=== PATIENT | male | born 1990 | race Caucasian/White ===

== ENCOUNTER 2020-01-01 12:44 | Emergency (ER) | payer OTHER, SELFPAY ==
[2020-01-01 12:49] VITALS: BP 134/81; PULSE 88; RESP 16; TEMP 37.2; O2SAT 99
--- NOTE | 2020-01-01 13:07 | ED.URI ---
HPI - URI/Sore Throat General Chief Complaint: Upper Respiratory Infection Stated Complaint: SORE THROAT Time Seen by Provider: 01/01/20 13:07 Source: patient and RN notes reviewed Mode of arrival: ambulatory Limitations: no limitations History of Present Illness HPI Narrative: 29-year-old male presents with concern for sore throat, body aches, sweats, chills that started yesterday. Denies rhinorrhea, congestion, cough. Reports taking Motrin and Tylenol. MD elicited complaint: sore throat Related Data Allergies Allergy/AdvReac Type Severity Reaction Status Date / Time No Known Allergies Allergy Unknown Other Verified 05/26/18 09:03 Review of Systems Review of Systems: Narrative: CONSTITUTIONAL: Reports malaise, chills, sweats, tactile fever. EYES: Denies visual changes, redness, or discharge. ENT: Denies rhinorrhea, congestion, sinus pain, otalgia. Reports sore throat. CARDIOVASCULAR: Denies chest pain, palpitations, or edema. RESPIRATORY: Denies cough dyspnea. GASTROINTESTINAL: Denies abdominal pain, nausea, vomiting, diarrhea SKIN: Denies rash or itching. MUSCULOSKELETAL: Reports myalgia. NEUROLOGIC: Denies headache. All systems reviewed & are unremarkable except as noted in HPI and below PMFSH Past Medical History Medical History (Updated 01/01/20 @ 13:23 by Tabatha Dobbins NP) Hyperlipidemia Social History Social History Smoking status: Never smoker Alcohol intake: current Comments At time of signature, agree with nursing past medical, surgical, social and family history. There is no relevant family history pertinent to the presenting complaint Exam Narrative: Exam Narrative: GENERAL: Well-appearing, well-nourished, and in no acute distress. HEAD: Normocephalic EYES: PERRLA, conjunctivae clear ENT: Nares clear, turbinates pink, discharge. Mucous membranes moist. TM pearly lerner with sharp light reflex bilaterally; no tragal tenderness. Oropharynx erythematous without lesions. Tonsils enlarged and with purulent exudate, no drooling, no hoarseness, no trismus. NECK: Supple. No lymphadenopathy CHEST: Clear to auscultation, breath sounds equal. No wheezing, rhonchi, rales, or stridor. No respiratory distress, speaks in full sentences. HEART: Regular rate and rhythm. No murmur heard. Normal peripheral pulses. SKIN: Warm, dry, no rash. NEURO: Alert and oriented x3. PSYCH: Normal mood and affect Course Course Emergency Course: Patient is aware of diagnosis, understands and agrees to treatment plan. Anticipatory guidance given. Patient agrees to follow-up as directed and is aware of reasons to seek care at the emergency department. Portions of this record may have been created with voice recognition software Vital Signs Vital signs: Vital Signs Temperature 98.9 F 01/01/20 12:49 Pulse Rate 88 01/01/20 12:49 Respiratory Rate 16 01/01/20 12:49 Blood Pressure 134/81 01/01/20 12:49 Pulse Oximetry 99 01/01/20 12:49 Temperature 98.9 F 01/01/20 12:49 Pulse Rate 88 01/01/20 12:49 Respiratory Rate 16 01/01/20 12:49 Blood Pressure 134/81 01/01/20 12:49 Pulse Oximetry 99 01/01/20 12:49 Reviewed. Pt has been instructed to follow up with his primary care provider within the next week regarding his elevated blood pressure today. MDM - URI/Sore Throat MDM Narrative Medical decision making narrative: Differential diagnosis considered: Strep pharyngitis, allergic rhinitis, upper respiratory tract infection, sinusitis, rhinosinusitis, nasopharyngitis. viral pharyngitis, otitis media, otitis externa, pneumonia, bronchitis, viral cough syndrome, viral syndrome, and influenza. Exam findings show no acute concerns or changes; patient is non-toxic appearing and is in no distress. Patient is appropriate for outpatient treatment and follow-up. Lab Data Attestation: I reviewed the patient's lab results. Labs: Influenza A Screen Negat
== END 2020-01-01 13:28 | disposition home or self-care (01) ==
PROVIDERS: Emergency Provider Nurse Practitioner
DX: J02.0 Streptococcal pharyngitis (principal); E78.5 Hyperlipidemia, unspecified
CPT/HCPCS: 87804; 87880; 99213; G0463

== ENCOUNTER 2020-07-31 00:39 | Outpatient (CLI) | payer OTHER, SELFPAY ==
[2020-07-31 17:08] LABS: SARS-CoV-2 RNA PCR Negative
== END 2020-07-31 00:40 | disposition home or self-care (01) ==
LOC: ANHCOVIDDT 00:39
PROVIDERS: Visit Provider Internal Medicine Gastroenterology
DX: Z01.812 Encounter for preprocedural laboratory examination (principal); Z11.59 Encounter for screening for other viral diseases
CPT/HCPCS: 87635; C9803; U0003

== ENCOUNTER 2020-08-03 00:54 | Day surgery (SDC) | payer OTHER, SELFPAY ==
[2020-07-27 12:19] VITALS: BMI 29.4
[2020-08-03 07:18] VITALS: BP 114/74; PULSE 78; RESP 18; TEMP 36.5; O2SAT 98
--- NOTE | 2020-08-03 07:24 | PM.HPGS ---
History of Present Illness History of Present Illness Consent: Risks, benefits, and alternatives have been discussed and questions answered. Patient agrees to proceed with procedure. Chief complaint: Rectal Bleed Narrative: Gurdeep Wells is a 30 year old W male referred for colonoscopy secondary to a history of intermittent painless rectal bleeding. Patient states he had external hemorrhoid surgery year ago. He has had some intermittent bleeding since this time. He has never had a colonoscopy or what sounds like flexible sigmoidoscopy either. No family history of colon polyps or colon cancer. No change in bowel pattern no other gastrointestinal symptoms. [facility] Past Medical History Medical History Hyperlipidemia Social History Social History Smoking status: Never smoker Alcohol intake: current Drinks per week: 2 Alcohol use details: MAY HAVE 2 BEERS PER WEEK Substance use: never Substance use type: does not use Living arrangements: with family Spiritual care concerns: No Meds Home Medications and Allergies Home Medications Medication Instructions Recorded Confirmed Type No Home Medications 04/22/20 07/27/20 History Allergies Allergy/AdvReac Type Severity Reaction Status Date / Time No Known Allergies Allergy Unknown Other Verified 08/03/20 07:17 Exam Const: Orientation/consciousness: patient oriented x3 Resp: Auscultation: clear to auscultation bilaterally Cardio: Rate: regular rate Rhythm: regular rhythm Heart sounds: no murmurs GI: GI Palp: Yes Soft to palpation, No Tenderness to palpation present (GI), Yes No hepatosplenomegaly present and No Palpable mass present Auscultation: normal bowel sounds Neuro: General: patient oriented x3 and no focal motor deficits Extrem: General: no pedal edema Assessment and Plan Additional Plan Colonoscopy for evaluation of rectal bleeding
[2020-08-03] MEDS: LACTATED RINGERS 1,000 ML 150 ML IV CONT (07:35)
--- NOTE | 2020-08-03 07:56 | WPDANESEPPF ---
Anes - Initial Pre Proc Eval Procedure: Operation Date: 08/03/20 08:30 Proposed Procedures p Colonoscopy - Robbin Arteaga MD Date/Time: 08/03/20 07:56 Surgeon: Robbin Arteaga MD Pre Op Diagnosis: Rectal Bleed Patient Data Age: 30 Gender: M Height: 6 ft 3 in Weight: 106.3 kg Last Vital Signs Temp 97.7 F 08/03/20 07:18 Pulse 78 08/03/20 07:18 Resp 18 08/03/20 07:18 BP 114/74 08/03/20 07:18 Pulse Ox 98 08/03/20 07:18 Allergies Allergy/AdvReac Type Severity Reaction Status Date / Time No Known Allergies Allergy Unknown Other Verified 08/03/20 07:17 Home Medications Medication Instructions Recorded Confirmed Type No Home Medications 04/22/20 08/03/20 History Patient hx anesthesia problems: none Family hx anesthesia problems: none PMFSH Past Medical History Medical History Hyperlipidemia Social History Social History Smoking status: Never smoker Alcohol intake: current Drinks per week: 2 Alcohol use details: MAY HAVE 2 BEERS PER WEEK Substance use: never Substance use type: does not use Living arrangements: with family Spiritual care concerns: No Anes - Eval Final PreProcedure Day of Procedure 08/03/20 07:56 Patient weight: normal Heart: regular rate and rhythm Lungs: clear to auscultation Airway: Mallampati scale class II Neurological: alert and oriented Last oral intake: >/= 8 hours ASA classification: II Emergent: no Anesthetic plan: proceed Anesthesia type and monitoring: general GIVS and standard monitoring Informed Consent: The patient's anesthetic plan and its attendant risks and benefits were discussed with the patient/family/POA. Questions were solicited and answers provided to the satisfaction of the patient/family/POA.
[2020-08-03 08:53] VITALS: BP 93/46; PULSE 73; RESP 16; O2SAT 98
[2020-08-03 09:03] VITALS: BP 99/52; PULSE 69; RESP 18; O2SAT 98
[2020-08-03 09:13] VITALS: BP 90/43; PULSE 61; RESP 18; O2SAT 99
[2020-08-03 09:23] VITALS: BP 107/71; PULSE 60; RESP 21; O2SAT 98
== END 2020-08-03 09:32 | disposition home or self-care (01) ==
PROVIDERS: Visit Provider Internal Medicine Gastroenterology
PROC: 0DJD8ZZ Inspection of Lower Intestinal Tract, Via Natural or Artificial Opening Endoscopic (ICD-10-PCS; CPT 45378; principal; 2020-08-03 08:30)
DX: K92.1 Melena (principal); K64.8 Other hemorrhoids; K64.4 Residual hemorrhoidal skin tags; E78.5 Hyperlipidemia, unspecified
CPT/HCPCS: 45378; 87635; C9803; J2704; J7120; U0003

== ENCOUNTER 2021-07-13 08:26 | Outpatient (CLI) | payer OTHER, SELFPAY ==
--- NOTE | 2021-08-03 08:26 | WPDHOMESLEEP ---
Sleep Study - Home Unattended Date of Study: 07/13/21 Ordering Provider: Sonia Spaulding MD Interpreting Provider: Diane Correia MD Home Sleep Study Type: Watch PAT Height: 1.88 m Weight: 111.13 kg Body Mass Index: 31.4 Neck Circumference (inches): 16 [place]: 10 Reason for Sleep Study Non refreshing sleep for 15 years Sleep History Gurdeep Wells is a 31 year old man who complains of waking up exhausted for the last 15 years. He has multiple nighttime awakenings and he has excessive daytime sleepiness. He has a difficult time waking in the morning. He rarely awakens from sleep feeling short of breath. He rarely awakens at night with heartburn, belching or coughing. He occasionally snores but it is not generally loud enough that others complain about it. He frequently has trouble sleeping with a cold. He rarely wakes up gasping for breath at night. He does not have breathing problems at night reported to him by others. He does not sweat excessively at night. He occasionally notices his heart pounding or beating irregularly at night. He rarely falls asleep during the day, never falls asleep involuntarily and never falls asleep while driving. He does not have loss of muscle tone with strong emotion. He occasionally has daytime difficulties due to excessive sleepiness. 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 He does not feel paralyzed on waking or falling asleep. He frequently has vivid dreamlike scenes upon awakening or falling asleep. He does not feel afraid to go to sleep. He rarely has nightmares. He frequently remembers his dreams and frequently has racing thoughts. He occasionally feels sad or depressed. He frequently has anxiety. He rarely has muscular tension. He occasionally notices parts of his body jerking. He does not kick at night, does not have crawling or aching feelings in his legs or have any kind of leg pain at night. He rarely has morning jaw pain. He rarely grinds his teeth during sleep. He is not bothered by pain during the day or awakened by pain at night. He frequently wakes up feeling stiff in the morning with sore achy muscles and pain in the neck and spine. He has fatigue, depression, memory problems and concentration difficulties. He reports a 5 lb weight gain in the last year. Normal bedtime is 10:00 p.m. falling asleep within 15-20 minutes, waking 2-3 times at night, quickly returning to sleep. He wakes in the morning between 5:30 a.m. and 6:00 a.m.. His weekend schedule is similar, same bedtime, waking at 6:00 a.m.. He does not take naps. A short nap may be refreshing. He feels better in the morning compared to other times of day. Habits: Never smoked tobacco. Caffeine 5 cups a day. Alcohol 2-3 per week. No recreational drugs. [facility] Past Medical History Medical History (Updated 08/03/21 @ 08:37 by Diane Correia MD) Depression Hyperlipidemia Family History Family History Grandparent Cerebrovascular accident Father Family history of chronic obstructive pulmonary disease Family history of malignant neoplasm of urinary bladder Social History Social History Smoking status: Never smoker Alcohol intake: current Drinks per week: 2 Alcohol use details: MAY HAVE 2 BEERS PER WEEK Substance use: never Substance use type: does not use Spiritual care concerns: No Medications Home Medications Medication Instructions Recorded Confirmed Type sertraline 100 mg tablet 100 mg PO DAILY #90 tablet 06/17/21 06/17/21 Rx Sleep Procedure The sleep study was completed using EtohumT a technically adequate device with seven channels: peripheral arterial tone, actigraphy, body position, snore, respiratory movement, pulse oximetry, sleep staging, and heart rate. Prior to using the device, the patient received verbal and written instructions for its ap
[2021-08-03 08:37] VITALS: BMI 31.4
== END 2021-07-14 10:29 | disposition home or self-care (01) ==
LOC: ANHCSM 08:30
PROVIDERS: PCP Family Medicine; Visit Provider Family Medicine
DX: G47.30 Sleep apnea, unspecified (principal); G47.33 Obstructive sleep apnea (adult) (pediatric)
CPT/HCPCS: 95800

== ENCOUNTER 2021-08-24 07:41 | Outpatient (CLI) | payer OTHER, SELFPAY ==
--- NOTE | 2021-09-06 11:12 | WPDSLEEPSTUD ---
Sleep Study Date of Study: 08/24/21 <Angelica Hansen DO - Last Filed: 09/06/21 11:53> Ordering Provider: Sonia Spaulding MD <Angelica Hansen DO - Last Filed: 09/06/21 11:53> Interpreting Physician: Angelica Hansen DO <Angelica Hansen DO - Last Filed: 09/06/21 11:53> Sleep Study Type: CPAP Titration <Angelica Hansen DO - Last Filed: 09/06/21 11:53> Height: 1.91 m <Angelica Hansen DO - Last Filed: 09/06/21 11:53> Weight: 108.862 kg <Angelica Hansen DO - Last Filed: 09/06/21 11:53> Body Mass Index: 29.9 <Angelica Hansen DO - Last Filed: 09/06/21 11:53> Neck Circumference (inches): 17 <Angelica Hansen DO - Last Filed: 09/06/21 11:53> [place]: 4 <Angelica Hansen DO - Last Filed: 09/06/21 11:53> Reason for Sleep Study The patient had a home sleep test using the WatchPAT on 07/13/2021 that showed an AHI of 8.3 and a SIMBA of 1.7. He had a desaturation of 81%. Recommended to have an in-lab PAP Titration. <Angelica Hansen DO - Last Filed: 09/06/21 11:53> Sleep History Gurdeep Wells is a 31 year old man who complains of waking up exhausted for the last 15 years. He has multiple nighttime awakenings and he has excessive daytime sleepiness. He has a difficult time waking in the morning. He rarely awakens from sleep feeling short of breath. He rarely awakens at night with heartburn, belching or coughing. He occasionally snores but it is not generally loud enough that others complain about it. He frequently has trouble sleeping with a cold. He rarely wakes up gasping for breath at night. He does not have breathing problems at night reported to him by others. He does not sweat excessively at night. He occasionally notices his heart pounding or beating irregularly at night. He rarely falls asleep during the day, never falls asleep involuntarily and never falls asleep while driving. He does not have loss of muscle tone with strong emotion. He occasionally has daytime difficulties due to excessive sleepiness. 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 He does not feel paralyzed on waking or falling asleep. He frequently has vivid dreamlike scenes upon awakening or falling asleep. He does not feel afraid to go to sleep. He rarely has nightmares. He frequently remembers his dreams and frequently has racing thoughts. He occasionally feels sad or depressed. He frequently has anxiety. He rarely has muscular tension. He occasionally notices parts of his body jerking. He does not kick at night, does not have crawling or aching feelings in his legs or have any kind of leg pain at night. He rarely has morning jaw pain. He rarely grinds his teeth during sleep. He is not bothered by pain during the day or awakened by pain at night. He frequently wakes up feeling stiff in the morning with sore achy muscles and pain in the neck and spine. He has fatigue, depression, memory problems and concentration difficulties. He reports a 5 lb weight gain in the last year. Normal bedtime is 10:00 p.m. falling asleep within 15-20 minutes, waking 2-3 times at night, quickly returning to sleep. He wakes in the morning between 5:30 a.m. and 6:00 a.m.. His weekend schedule is similar, same bedtime, waking at 6:00 a.m.. He does not take naps. A short nap may be refreshing. He feels better in the morning compared to other times of day. Habits: Never smoked tobacco. Caffeine 5 cups a day. Alcohol 2-3 per week. No recreational drugs. <Angelica Hansen DO - Last Filed: 09/06/21 11:53> [facility] Past Medical History Medical History: Medical History Depression Hyperlipidemia <Angelica Hansen DO - Last Filed: 09/06/21 11:53> Family History Family History: Family History Grandparent Cerebrovascular accident Father Fa
[2021-09-06 11:16] VITALS: BMI 29.9
== END 2021-08-25 06:05 | disposition home or self-care (01) ==
LOC: ANHCSM 07:42
PROVIDERS: PCP Family Medicine; Visit Provider Family Medicine
DX: G47.33 Obstructive sleep apnea (adult) (pediatric) (principal)
CPT/HCPCS: 95811

== ENCOUNTER → 2022-12-28 08:35 | Outpatient (CLI) | payer OTHER, SELFPAY ==
--- NOTE | ~2022-12-28 | US_ITS ---
EXAMINATION: US scrotum doppler DATE: 12/28/2022 08:57 INDICATION: Right testicular pain, recent facetectomy TECHNIQUE: Testicular sonogram utilizing grayscale and Doppler COMPARISON: None. FINDINGS: The right testis measures 4.5 x 2.0 x 3.1 cm. The left testis measures 4.3 x 2.1 x 3.1 cm. There is normal vascular flow to both testes. The right epididymis contains a 2 mm cyst or spermatoce le. The left epididymis contains an 8 mm cyst or spermatocele. There is no varicocele or hydrocele. IMPRESSION: 1. No sonographic correlate for the patient's symptoms. Reviewed, dictated and finalized at location B. [facility] [facility]
== END ==
PROVIDERS: PCP Family Medicine; Visit Provider Nurse Practitioner
DX: N50.811 Right testicular pain (principal)
CPT/HCPCS: 76870; 93976